=== PATIENT | female | born 1975 | race Caucasian/White ===

== ENCOUNTER → 2016-05-02 | Outpatient (CLI) | payer MEDICAID ==
[~2016-05-02] MED LIST: ACET325T51 PO; HYDR-3989 PO; NO ROUTINE MEDS; SULF1TAB42 PO
--- NOTE | 2016-05-02 10:31 | DI ---
Indication: ITS.REASON: Z01.419 WELL WOMAN EXAM; N85.2 Hypertrophy of uterus PROCEDURE: US PELVIC NON OB W/TRANS VAG: Encounter: Initial Comparison: None FINDINGS: Transvaginal and transabdominal pelvic imaging was performed. The uterus measures 8.1 x 3.1 x 6.7 cm. The parenchyma is homogeneous without fibroids. The endometrial stripe measures 8 mm in thickness. There is no evidence of focal endometrial mass. Both ovaries are identified and normal in appearance. Small possible hemorrhagic cyst in the left ovary measuring 1.5 cm in size. Benign appearing simple cyst in the right ovary measuring 1.3 cm in size. The right ovary measures 2.4 x 1.6 x 1.9 cm. The left ovary measures 3.2 x 2.1 x 2.6 cm. There are no abnormal adnexal masses detected. IMPRESSION: Unremarkable pelvic sonogram. .
== END ==
LOC: IMA 09:31
PROVIDERS: ATTEND Family Medicine
DX: Z12.31 Encounter for screening mammogram for malignant neoplasm of breast (principal); Z01.419 Encounter for gynecological examination (general) (routine) without abnormal findings; N85.2 Hypertrophy of uterus

== ENCOUNTER 2016-05-24 10:22 | Day surgery (SDC) | payer MEDICAID ==
[~2016-05-24] VITALS: Ht 175.3 cm; Wt 114.3 kg
[2016-05-24] VITALS (15 sets, daily range): BP systolic 108–138; BP diastolic 58–110; PULSE 59–81; RESP 14–20; TEMP 97.1–98; O2SAT 96–100; Ht 175.3 cm; Wt 114.3 kg
[~2016-05-24 10:22] MED LIST changes: +BUPR150T8 PO; +HYDR-3841 PO; -HYDR-3989 PO; +LIDOCAINE 1% (10mg/ml) 2ml SDV INJ ONE; +LR 1,000 ML IV SCH; +LURA80TA PO; -NO ROUTINE MEDS; -SULF1TAB42 PO
--- NOTE | 2016-05-24 10:50 | ANESPREOP ---
Anesthesia Record Date and Time DATE: 05/24/16 TIME: 10:47 Proposed Surgical Procedure COLPOSCOPY Allergies: Coded Allergies: Penicillins (Verified Allergy, Unknown, 05/24/16) Ht/Wt/BMI Height: 5 ' 9.00 " Weight: 114.300 kg BMI: 37.2 kg/m2 Vital Signs Date Time Temp Pulse Resp B/P Pulse Ox O2 Delivery O2 Flow Rate FiO2 05/24/16 10:39 98.0 64 14 135/62 98 Room Air Medications Inpatient Medications Current Medications Medications (Trade) Dose Ordered Sig/Billy Start Time Stop Time Status Last Admin Dose Admin Lactated Ringer's (Lactated Ringers) 1,000 ml @ 50 mls/hr Q20H 05/24/16 07:00 Acetaminophen (Acetaminophen) 325 Mg Tablet, 2 TAB PO Q6H PRN for PAIN, ( Reported) Bupropion HCl (Bupropion HCl Sr) 150 Mg Tablet.er, 1 TAB PO BID, (Reported) Hydroxyzine Pamoate (Hydroxyzine Pamoate) 25 Mg Capsule, 1 TAB PO TID, (Reported ) Lurasidone HCl (Latuda) 80 Mg Tablet, 1 TAB PO HS, (Reported) Currently on Beta [place]: No Medical/Surgical History Anesthesia PMH: Denies: *Diabetes, Anesthesia Reactions (NO AIRWAY ISSUES), Arthritis, Cancer, Clotting Problems, Glaucoma, Malignant Hyperthermia, Renal Disease, Thyroid Disease Smoking Status: Current every day smoker Has pt. smoked today?: No # of Packs per Day: 1 Use Chewing Tobacco?: No Substance Use Type: does not use Last Drink: hours (ago) (8) HX of Last Menstrual Period: APRIL 2016 Past Surgical History Orthopedic Surgeries: Abdominal Surgeries: Yes - APPENDIX Genitourinary Surgeries: Cardiac Surgeries: Endocrine Surgeries: Reproductive Surgeries: Yes - C-SECTIONS X3,TUBAL Neurological Surgeries: Ear Surgeries: Nose Surgeries: Throat Surgeries: Yes - TONSILS Other Surgeries: Anesthesia Adverse Reactions: FOUND none Family Hx of Anesthesia Advers: none Hx of Motion Sickness: No Physical Exam Respiratory: Lungs clear Cardiovascular: FOUND Regular rate, rhythm Airway Assessment Mallampati Score: II TMD: 3 Fingerbreadths Neck Extension: Good Teeth: Upper Dentures Overall Assessment: No Airway Concerns ASA: 2 Plan Anesthesia Plan: TIVA Discussion Discussed risks/options/alternatives of anesthesia and questions answered. Patient consents. Nursing pain assessment noted. Attestation Statement Prior to the delivery of any anesthetic medication, I examined the patient, developed the plan, obtained the patient's consent and discussed the risk and benefits of the procedure with the patient/guardian. SUKHDEEP COOL CHILD AND ADOLESCENT PSYCHOLOGIST May 24, 2016 10:50
[2016-05-24] MEDS ORDERED: PROPOFOL 200mg 0 ML IV ONE (10:53)
[2016-05-24] MEDS ORDERED: PROPOFOL 500mg 0 ML IV ONE (10:53)
[2016-05-24] MEDS ORDERED: FENTANYL 100mcg/2ml INJECTION ONE ×2 (11:02→11:06)
[2016-05-24] MEDS ORDERED: PROPOFOL 500mg 50 ML IV ONE (11:05)
[2016-05-24] MEDS ORDERED: PROPOFOL 200mg 20 ML IV ONE (11:05)
[2016-05-24] MEDS ORDERED: KETAMINE 500mg/10ml INJECTION ONE (11:06)
--- NOTE | 2016-05-24 11:59 | NUR ---
ANXIOUSNESS PT EXTREMELY ANXIOUS ON ADMIT TO PACU. VERSED 1.0MG ADMINISTERED IV BY SUKHDEEP COOL CRNA
--- NOTE | 2016-05-24 12:04 | NUR ---
ANXIOUSNESS PT STATES SHE STILL FEELS LIKE SHE IS HAVING A PANIC ATTACK AND THAT THE [facility] ARE CLOSING IN. ADDITIONAL VERSED 0.5MG ADMINISTERED IV.
--- NOTE | 2016-05-24 12:23 | ANESPO ---
Post-Op Note Date 05/24/16 Time: 12:22 Status Pt Participated in Evaluation: Pt participated in person Vital Signs Date Time Temp Pulse Resp B/P Pulse Ox O2 Delivery O2 Flow Rate FiO2 05/24/16 10:39 98.0 64 14 135/62 98 Room Air Respiratory Function: Airway patent, Regular respirations Cardiovascular Function: Regular pulse Mental Status: Alert/oriented Pain Level Intensity: 0 Hydration: Taking po fluids Complications during Recovery None apparent Follow-Up Instructions Instructions Per Surgeon PATRICIA MONK May 24, 2016 12:23
[2016-05-24] MEDS ORDERED: IBUPROFEN 600 MG TABLET PO PRN ×2 (12:45→13:00)
--- NOTE | 2016-05-24 12:49 | NUR ---
HEADACHE PT REPORTS HEADACHE, RATING HER DISCOMFORT 6/10. MOTRIN 600MG ADMINISTERED PO FOR PAIN.
[2016-05-24] MEDS ORDERED: SILVER NITRATE APPLICATOR TOP ONE (13:52)
--- NOTE | 2016-05-25 23:04 | OPNOTEF ---
DATE OF SURGERY: 05/24/2016 PREOPERATIVE DIAGNOSIS: 41-year-old white female with a low grade JESSENIA Pap smear, unable to tolerate colonoscopy in the office. POSTOPERATIVE DIAGNOSIS: Same. PROCEDURES: Colposcopy of the cervix under anesthesia. EBL: Minimal SURGEON: Subhash Villalobos MD COMPLICATIONS: None. ANESTHESIA: TIVA - converted to general by gas. This is a patient referred to me for an abnormal Pap smear for a colposcopy. I attempted it in the office last Sunday and was unable to visualize the cervix and it was getting very uncomfortable for the patient, so we set this up for some IV anesthesia. DESCRIPTION After adequate anesthesia, the patient was set up and draped in the low lithotomy position. I tried a couple of different speculums until I found one that I could easily visualize the cervix. Then I brought the colposcopy machine from my office over and was able to visualize the cervix and the entire transformation zone. I performed the colposcopy. I did an ECC with the Cytobrush and then did a biopsy at the 6 o'clock position. Cervix looked pretty good with the clinical impression of normal to CIN1. Silver nitrate was used to achieve hemostasis and then the procedure was completed. The patient went to recovery room in stable condition. SHABBIR
== END 2016-05-24 13:23 | disposition home or self-care (01) ==
LOC: SCU 10:22
PROVIDERS: ATTEND Obstetrics & Gynecology
DX: D06.0 Carcinoma in situ of endocervix (principal); N72 Inflammatory disease of cervix uteri; F31.9 Bipolar disorder, unspecified; R01.1 Cardiac murmur, unspecified; F17.200 Nicotine dependence, unspecified, uncomplicated; Z79.899 Other long term (current) drug therapy
CPT/HCPCS: 57454; 81025; J2704; J3010; J7120

== ENCOUNTER 2016-06-23 07:13 | Day surgery (SDC) | payer MEDICAID ==
[2016-06-23] VITALS (24 sets, daily range): BP systolic 121–151; BP diastolic 66–102; PULSE 51–87; RESP 14–25; TEMP 96.5–98.9; O2SAT 94–100; Ht 175.3 cm; Wt 118.3 kg
[~2016-06-23] VITALS: Ht 175.3 cm; Wt 118.3 kg
[~2016-06-23 07:13] MED LIST changes: -ACET325T51 PO; +BUSP30TA2 PO; +CEFOXITIN IV ONE; -HYDR-3841 PO; +HYDR50CA5 PO; +LURA20TA PO; +NORMAL SALINE IV ONE; +PRAZ5CAP2 PO
--- OUTSIDE RECORDS SUMMARY | 2016-06-23 07:17 | XMS REPORT | Continuity of Care Document ---
Author Author [facility] Organization [facility] Address Unknown Phone Unavailable Care Team Providers Care Reclamation Supervisor Name Role Phone ZANE US MD Primary Care Physician [phone] Insurance Providers Guarantor Emily Quintanilla Address [address] [place] [address] Email [email or web address] Payer [facility] Policy Number [id number] Subscriber's Name Emily Quintanilla Relationship 18 Self Effective Date 16 Expiration Date 16 Advance Directives Directive Response Recorded Date/Time Dr Christie Resuscitation Status Full Code 05/23/16 2:59pm Resuscitation Documents on File No 05/24/16 10:49am DPOA for Healthcare Only No 05/24/16 10:49am Living Will No 05/24/16 10:49am Problems Active Problems Medical Problem Onset Date Status Acute sinusitis Unknown Acute Past Problems Medical Problem Onset Date Abscess or cellulitis of groin Unknown Medications Current Home Medications Medication Dose Units Route Directions Days Qty Instructions Start Date Acetaminophen 325 Mg Tablet 2 Tab Oral Every 6 Hours as needed for Pain 07/17/15 Bupropion Hcl (Bupropion Hcl Sr) 150 Mg Tablet.er 1 Tab Oral Twice A Day 60 05/23/16 Hydroxyzine Pamoate 25 Mg Capsule 1 Tab Oral Three Times A Day 90 05/23/16 Lurasidone Hcl (Latuda) 80 Mg Tablet 1 Tab Oral Bedtime 30 Social History Social History Problem Response Recorded Date/Time Onset Date Status Chewing Tobacco Status No 05/23/2016 10:42am Not Applicable Not Applicable Hx Substance Use No 05/23/2016 10:42am Not Applicable Not Applicable Hx Alcohol Use Yes 05/23/2016 10:42am Not Applicable Not Applicable Has the pt used tobacco in the last 12 months Yes 05/23/2016 10:42am Not Applicable Not Applicable Tobacco Usage smoke 05/16/2015 12:37pm Not Applicable Not Applicable Query Response Start Date Stop Date Smoking Status Current every day smoker Hospital Discharge Instructions No hospital discharge instructions. Plan of Care Discharge Date 05/24/16 1:23pm Prescriptions See Medication Section Functional Status Query Response Date Recorded Ability to complete ADL's impeded by No change May 24, 2016 10:49am Allergies, Adverse Reactions, Alerts Allergen Type Severity Reaction Status Last Updated Penicillin Allergy Unknown Active 05/24/16 Immunizations Query Response on File Recorded Date/Time Hx Influenza Vaccination No 05/23/16 10:42am Hx Pneumococcal Vaccination No 05/23/16 10:42am Hx Influenza Vaccination No 05/23/16 10:42am Influenza Vaccine Hx NO 07/17/15 9:30am Vital Signs Acute Vital Signs Vital Response Date/Time Temperature (Fahrenheit) 97.2 deg F (96.8 - 99.1) 05/24/2016 12:36pm Temperature (Calculated Celsius) 36.39513 degrees C (36.0 - 37.3) 05/24/2016 12:36pm Temperature Source Temporal 05/24/2016 12:36pm Pulse Rate (adult) 61 bpm (60 - 100) 05/24/2016 1:20pm Respiratory Rate 18 breaths/min (10 - 20) 05/24/2016 1:20pm O2 Sat by Pulse Oximetry 99 % (90 - 100) 05/24/2016 1:20pm Oxygen Delivery Method Room Air 05/24/2016 12:36pm Blood Pressure 125/78 mm Hg 05/24/2016 1:20pm Blood Pressure Source Automatic Cuff 05/24/2016 1:20pm Height (Feet) 5 feet 05/24/2016 10:38am Height (Inches) 9.00 inches 05/24/2016 10:38am Weight (Kilograms) 114.300 kg 05/24/2016 10:38am Body Mass Index (BMI) 37.2 05/24/2016 10:38am Results No known relevant diagnostic tests, laboratory data and/or discharge summary. Procedures Procedure Status Date Provider(s) Transvaginal us non-ob Completed 05/02/16 Us exam pelvic complete Completed 05/02/16 Breast tomosynthesis bi Completed 05/02/16 Scr mammo bi incl cad Completed 05/02/16 Colposcopy Completed 05/24/16 NEL VANEGAS MD Encounters Encounter Location Arrival/Admit Date Discharge/Depart Date Attending Provider Departed [facility] 05/24/16 10:22am 05/24/16 1 :23pm NEL VANEGAS MD Registered Clinic [facility] 05/02/16 9:31am BRITTANY TARANGO
[2016-06-23] MEDS ORDERED: BUPIVACAINE 0.25% (2.5mg/ml) INJ 30ml SDV ONE (07:28)
[2016-06-23 07:53] LABS: BASOPHILS # (AUTO) 0.1 T/MM3 (0-0.2); BASOPHILS % (AUTO) 0.7 % (0-2); EOSINOPHILS # (AUTO) 0.4 T/MM3 (0-0.5); EOSINOPHILS % (AUTO) 5.2 % (0-4); HGB - HEMOGLOBIN 13.2 GM/DL (12-16); IMMATURE GRANULOCYTE # (AUTO) 0.02 T/MM3 (0.00-0.03); IMMATURE GRANULOCYTE % (AUTO) 0.3 % (0.0-0.5); LYMPHOCYTES % (AUTO) 29.5 % (23-45); MEAN CORPUSCULAR HGB 30.3 UUG (26-34); MEAN CORPUSCULAR HGB CONC(MCHC 33.8 GM/DL (31-37); MEAN CORPUSCULAR VOLUME 89.4 UM3 (80-100); MEAN PLATELET VOLUME 10.1 UM3 (9.4-12.4); MONOCYTES # (AUTO) 0.8 T/MM3 (0-0.8); NEUTROPHILS #(AUTO)-ABSOLUTE 3.5 T/MM3 (1.8-7.7); NEUTROPHILS % (AUTO) 52.3 % (33-66); RED BLOOD COUNT 4.36 M/MM3 (4.00-5.20); WBC - WHITE BLOOD COUNT 6.7 T/MM3 (4.5-11.0)
[2016-06-23 08:00] LABS: ALBUMIN 4.1 G/DL (3.5-5.0); ALBUMIN/GLOBULIN RATIO 1.6 RATIO (1.1-2.2); ALKALINE PHOSPHATASE 60 U/L (38-126); ALT (SGPT) 54 U/L (9-52); ANION GAP 11 MEQ/L (5-15); AST (SGOT) 28 U/L (14-36); BUN/CREATININE RATIO 13 RATIO (6-26); CHLORIDE 106 MEQ/L (98-107); CO2 - CARBON DIOXIDE 28 MEQ/L (22-30); CREATININE 0.8 MG/DL (0.7-1.2); GLOMERULAR FILTRATION RATE 79; GLUCOSE 94 MG/DL (65-110); SODIUM 145 MEQ/L (134-144); TOTAL PROTEIN 6.6 G/DL (6.3-8.2)
[2016-06-23] MEDS ORDERED: CEFAZOLIN 1 GRAM INJECTION IV ONE (08:00)
[2016-06-23] MEDS ORDERED: ALBUTEROL INH.SOLN. 2.5mg/3ml (0.083%) Neb. AEROSOL ONE (08:30)
--- NOTE | 2016-06-23 08:33 | ANESPREOP ---
Anesthesia Record Date and Time DATE: 06/23/16 TIME: 08:20 Proposed Surgical Procedure ROBOTIC LAP HYSTERECTOMY/POSS SALPINGECTOMY Allergies: Coded Allergies: Penicillins (Verified Adverse Reaction, Unknown, YEAST INFECTIONS, 06/22/16 ) Ht/Wt/BMI Height: 5 ' 9.00 " Weight: 116.900 kg BMI: 38.1 kg/m2 Vital Signs Date Time Temp Pulse Resp B/P Pulse Ox O2 Delivery O2 Flow Rate FiO2 06/23/16 07:26 97.6 67 19 122/78 98 Room Air Medications Inpatient Medications Current Medications Medications (Trade) Dose Ordered Sig/Billy Start Time Stop Time Status Last Admin Dose Admin Lactated Ringer's (Lactated Ringers) 1,000 ml @ 100 mls/hr Q10H 06/23/16 07:00 Bupropion HCl (Bupropion HCl Sr) 150 Mg Tablet.er, 2 TAB PO DAILY, (Reported) Last Taken: on 06/22/162199 Buspirone HCl (Buspirone HCl) 30 Mg Tablet, 1 TAB PO BID, (Reported) Last Taken: on 06/22/162199 Hydroxyzine Pamoate (Hydroxyzine Pamoate) 50 Mg Capsule, 1 CAP PO TID, (Reported) Last Taken: on 06/22/162199 Lurasidone HCl (Latuda) 80 Mg Tablet, 1 TAB PO DAILY, (Reported) Last Taken: on 06/22/162199 Lurasidone HCl (Latuda) 20 Mg Tablet, 1 CAP PO HS, (Reported) Last Taken: on 06/22/162199 Prazosin HCl (Prazosin HCl) 5 Mg Capsule, 1 CAP PO HS, (Reported) Last Taken: on 06/22/162199 Discontinued Medications Hydroxyzine Pamoate (Hydroxyzine Pamoate) 25 Mg Capsule, 1 TAB PO TID, (Reported ) Currently on Beta [place]: No Medical/Surgical History Anesthesia PMH: Denies: *Diabetes, Anesthesia Reactions (NO AIRWAY ISSUES), Arthritis, Cancer, Clotting Problems, Glaucoma, Malignant Hyperthermia, Reflux, Renal Disease, Sleep Apnea, Thyroid Disease Smoking Status: Current every day smoker Has pt. smoked today?: No # of Packs per Day: 1 Use Chewing Tobacco?: No Substance Use Type: does not use Last Drink: hours (ago) HX of Last Menstrual Period: 05/24/16 Past Surgical History Orthopedic Surgeries: Abdominal Surgeries: Yes - APPY Genitourinary Surgeries: Cardiac Surgeries: Endocrine Surgeries: Reproductive Surgeries: Yes - C-SECTIONS X3,TUBAL Neurological Surgeries: Ear Surgeries: Nose Surgeries: Throat Surgeries: Yes - TONSILS Other Surgeries: Yes - C-SECTIONS X3,TUBAL Anesthesia Adverse Reactions: FOUND none Pertinent Findings Laboratory Tests 06/23/16 07:41 Test 06/23/16 07:41 Human Chorionic Gonadotropin, Qual Negative (NEGATIVE) Physical Exam Respiratory: Wheezing (breathing tx ordered) Cardiovascular: FOUND Regular rate, rhythm Airway Assessment Mallampati Score: II TMD: 3 Fingerbreadths Neck Extension: Good Teeth: Upper Dentures ASA: 2 Plan Anesthesia Plan: GETA Discussion Discussed risks/options/alternatives of anesthesia and questions answered. Patient consents. Nursing pain assessment noted. Attestation Statement Prior to the delivery of any anesthetic medication, I examined the patient, developed the plan, obtained the patient's consent and discussed the risk and benefits of the procedure with the patient/guardian. SUKHDEEP COOL CRNA June 23, 2016 08:33
[2016-06-23] MEDS ORDERED: LIDOCAINE 2% (20mg/ml) 5ml PF SDV ONE (08:42)
[2016-06-23] MEDS ORDERED: ONDANSETRON 4mg/2ml INJECTION ONE (08:42)
[2016-06-23] MEDS ORDERED: PROPOFOL 500mg 50 ML IV ONE (08:42)
[2016-06-23] MEDS ORDERED: FENTANYL 100mcg/2ml INJECTION ONE (08:42)
[2016-06-23] MEDS ORDERED: DiphenhydrAMINE 50 MG/ML INJECTION ONE (08:42)
[2016-06-23] MEDS ORDERED: DEXAMETHASONE 4mg/ml - 1ml INJECTION ONE (08:42)
[2016-06-23] MEDS ORDERED: ROCURONIUM 50mg/5ml INJECTION IV ONE ×2 (08:42→11:35)
[2016-06-23] MEDS ORDERED: MIDAZOLAM 2mg/2ml INJECTION ONE (08:43)
[2016-06-23] MEDS ORDERED: HYDROMORPHONE 2mg/ml INJECTION ONE (10:33)
[2016-06-23] MEDS ORDERED: GLYCOPYRROLATE 0.4mg/2ml INJECTION ONE (12:53)
--- NOTE | 2016-06-23 13:14 | GYNOPNOTE1 ---
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
[2016-06-23] MEDS ORDERED: DimenhyDRINATE 50 MG in LR 1,000 ML IV SCH (13:40)
[2016-06-23] MEDS ORDERED: ONDANSETRON 4mg/2ml INJECTION IV PRN (13:45)
--- NOTE | 2016-06-23 14:15 | NUR ---
ADMISSION PT ADMITTED TO ROOM 109 VIA CART FROM PACU POST HYSTERECTOMY. PT REPORTS PAIN OF 10/10, PRN MORPHINE GIVEN. PT IS A&OX3, UP WITH TWO ASSIST UNTIL SHE WAKES A LITTLE MORE. PT REPORTS SHE FEELS LIKE SHE NEEDS TO DEFECATE BUT IS UNABLE. PT UP TO COMMODE BUT NO RESULTS. EXPLAINED TO PT THAT THE FEELING OF PRESSURE COULD BE FROM THE SURGERY. PT RESTING IN BED AT THIS TIME. VITALS WNL. ALARMS IN USE AND CALL LIGHT WITH IN REACH.
--- NOTE | 2016-06-23 14:16 | ANESPO ---
Post-Op Note Date 06/23/16 Time: 14:12 Status Pt Participated in Evaluation: Pt participated in person Vital Signs Date Time Temp Pulse Resp B/P Pulse Ox O2 Delivery O2 Flow Rate FiO2 06/23/16 14:10 97.1 53 22 151/82 98 Nasal Cannula 2.00 Respiratory Function: Airway patent, Regular respirations Cardiovascular Function: Regular pulse Mental Status: Alert/oriented Pain Level Intensity: 0 Hydration: IV infusing Complications during Recovery None apparent Follow-Up Instructions Instructions Per Surgeon MATT JEAN CRNA June 23, 2016 14:16
[2016-06-23] MEDS: MORPHINE SULFATE 4 MG SYRINGE IV PRN ×2 (14:29→16:47)
[2016-06-23] MEDS ORDERED: NORMAL SALINE IV ONE (15:00)
[2016-06-23] MEDS ORDERED: CEFOXITIN IV ONE (15:00)
[2016-06-23] MEDS: HydrOXYzine 50 MG TABLET PO SCH ×2 (16:24→21:32)
[2016-06-23] MEDS: HYDROCODONE/APAP 5 mg/325 mg TABLET PO PRN ×2 (16:25→23:10)
--- NOTE | 2016-06-23 16:53 | NUR ---
PAIN PT C/O PAIN LOCATED IN HER ABDOMEN AND RECTUM. PT RATES THIS PAIN THE WORST SHE HAS EVER EXPERIENCED (/) SAYING "IT FEELS LIKE THERE IS A METAL PIPE UP MY ASS", "THIS REALLY FUCKING HURTS". STAFF INFORMS THE PATIENT AND VISITOR IN THE ROOM THAT THE PATIENT NEEDS TO FOCUS ON DEEP BREATHING, AND BREATHING IN THROUGH THE NOSE AND OUT THROUGH THE MOUTH. THE PATIENT THEN PREFORMED THE BREATHING EXERCISE. THIS NURSE ALSO ADMINISTERED 4MG OF IV MORPHINE FOR THE PATIENT'S PAIN. STAFF TO REASSESS PAIN. PT RESTING IN BED, LIGHTS DIMMED FOR COMFORT.
[2016-06-23 17:18] LABS: HCT - HEMATOCRIT 39.9 % (36-46); HGB - HEMOGLOBIN 13.3 GM/DL (12-16); MEAN CORPUSCULAR HGB 30.1 UUG (26-34); MEAN CORPUSCULAR HGB CONC(MCHC 33.3 GM/DL (31-37); MEAN CORPUSCULAR VOLUME 90.3 UM3 (80-100); MEAN PLATELET VOLUME 10.2 UM3 (9.4-12.4); RED BLOOD COUNT 4.42 M/MM3 (4.00-5.20); WBC - WHITE BLOOD COUNT 13.7 T/MM3 (4.5-11.0)
--- NOTE | 2016-06-23 17:41 | GSPOSTPN ---
Postoperative Progress Note 06/23/16 vss af hgb stable disc surgery q&a-krb NEL VANEGAS MD June 23, 2016 17:41
[2016-06-23] MEDS: SIMETHICONE 80 MG CHEWABLE TABLET PO SCH ×2 (18:56→21:32)
[2016-06-23] MEDS: IBUPROFEN 800 MG TABLET PO PRN (18:56)
[2016-06-23] MEDS ORDERED: IODINE PO ONE (22:00)
[2016-06-23] MEDS ORDERED: NEOMYCIN/POLYM/BACITR OINT PACKET TOP ONE (22:00)
[2016-06-23] MEDS ORDERED: LURASIDONE 40 MG TABLET PO SCH (22:00)
[2016-06-23] MEDS ORDERED: POTASSIUM IODIDE PO ONE (22:00)
[2016-06-23] MEDS ORDERED: FERRIC SUBSULFATE 8 GM TOP ONE (22:00)
[2016-06-23] MEDS: D5LR 1,000 ML IV SCH (23:08)
[2016-06-24 03:17] VITALS: BP 156/87; PULSE 77; RESP 16; TEMP 99; O2SAT 95
--- NOTE | 2016-06-24 05:15 | NUR ---
SHIFT SUMMARY PT IS ALERT AND ORIENTED X3,VITAL SIGNS ARE STABLE ON ROOM AIR. DENIES C/P,N/V AND SOA. PT HAS NEEDED PRN PO PAIN MEDICATION WHICH HAS CONTROLLED THE PAIN WELL. PT HAS DANGLED ON THE SIDE OF THE BED AND WALKED IN HER ROOM ON THIS SHIFT. PT HAS HAD ADEQUATE OUTPUT VIA HADLEY. HADLEY TO BE DC'D AT 0700. WILL CONTINUE TO MONITOR OUTPUT. PT HAS SLEPT THROUGHOUT THE NIGHT BETWEEN CARES.
--- NOTE | 2016-06-24 07:00 | NUR ---
HADLEY HADLEY REMOVED PER DRS ORDERS, AAKASH-CARE PROVIDED AT THIS TIME. WILL MONITOR URINE OUTPUT POST HADLEY.
[2016-06-24] MEDS: IBUPROFEN 800 MG TABLET PO PRN (08:08)
[2016-06-24] MEDS: D5LR 1,000 ML IV SCH (08:08)
[2016-06-24 08:11] VITALS: BP 126/74; PULSE 72; RESP 16; TEMP 97.9; O2SAT 98
[2016-06-24 08:30] VITALS: PULSE 77; RESP 16
[2016-06-24] MEDS ORDERED: DOCUSATE CALCIUM 240 MG CAPSULE PO SCH (09:00)
[2016-06-24] MEDS: HYDROCODONE/APAP 5 mg/325 mg TABLET PO PRN (09:00)
[2016-06-24] MEDS ORDERED: LURASIDONE 40 MG TABLET PO SCH (09:00)
[2016-06-24] MEDS: HydrOXYzine 50 MG TABLET PO SCH (09:18)
[2016-06-24] MEDS: SIMETHICONE 80 MG CHEWABLE TABLET PO SCH (09:18)
--- NOTE | 2016-06-24 10:36 | NUR ---
TIFFANIE ALEXANDER IS 1. Addendum: 06/24/16 at 1036 by ZHANE NIÑO SW Amended: Links added.
--- NOTE | 2016-06-24 10:37 | NUR ---
CM THIS WORKER SPOKE WITH PT, INTRODUCED SELF, EXPLAINED ROLE, PROVIDED CONTACT INFO. PT STATED [place] WITH HER ROOMMATE, HER BOYFRIEND, AND HER 2 SPECIAL NEEDS CHILDREN (WHOM HER BOYFRIEND IS WATCHING WHILE SHE IS HERE). SHE SAID HER DC PLAN IS TO RETURN BACK HOME, AND HER BOYFRIEND OR ROOMMATE WILL PICK HER UP. SHE SAID SHE DOES NOT HAVE--OR NEED--ANY DME OR HOME HEALTH. SHE HAD NO QUESTIONS/NEEDS FOR THIS WORKER. ENCOURAGED HER TO CALL IF QUESTIONS DO ARISE, AND SHE SAID OK. Addendum: 06/24/16 at 1039 by ZHANE ANGEL Amended: Links added. Addendum: 06/24/16 at 1114 by ZHANE ANGEL SPOKE AGAIN WITH PT LATER, WHEN SHE WAS FEELING BETTER. PT STATED SHE STILL DOES NOT HAVE ANY QUESTIONS/NEEDS FOR THIS WORKER. HER DC PLAN IS TO RETURN HOME. THIS WORKER INQUIRED ABOUT SERVICES SHE MAY NEED; SHE SAID SHE HERSELF DOES NOT HAVE ANY BUT THAT HER 2 CHILDREN BOTH HAVE SERVICES IN PLACE (IN HOME HELP). SHE SAID SHE DOES NOT NEED ANY FURTHER ASSISTANCE.
[2016-06-24] MEDS ORDERED: HYDR-4246 PO (10:44)
[2016-06-24] MEDS ORDERED: IBUP-1547 PO (10:44)
--- NOTE | 2016-06-24 11:47 | NUR ---
DISCHARGE PATIENT IS ALERT AND ORIENTED X3. PATIENT VITALS ARE STABLE AND PATIENT IS ON ROOM AIR. PATIENT DENIES CP, NAUSEA, AND SOA. DISCHARGE INSTRUCTIONS INCLUDE: NEW MEDICATIONS, CONTINUED MEDICATIONS, SIGNS AND SYMPTOMS OF INFECTION, INCISION CARE, ACTIVITY/BATHING, REASONS TO CALL DOCTOR AND/OR SEEK IMMEDIATE CARE, AND DI FOR LAPAROSCOPIC HYSTERECTOMY. PERSONAL BELONGINGS RETURNED, AND ID BANDS REMOVED. IV DISCONTINUED. SCRIPT FOR NORCO GIVEN TO PATIENT. PATIENT LEFT VIA WHEELCHAIR FROM ER ENTRANCE. PATIENT TRANSPORTED HOME FOR SELF CARE BY BOYFRIEND.
--- NOTE | 2016-06-24 12:32 | OPNOTEF ---
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 POSTOPERATIVE DIAGNOSIS: Same. PROCEDURE: Cold knife conization of the cervix followed by robotic-assisted vaginal hysterectomy and bilateral salpingectomy. EBL: 100 mL. ANESTHESIA: General endotracheal Charles Rivera CRNA SURGEON: Subhash Villalobos MD COMPLICATIONS: None. DESCRIPTION OF PROCEDURE After adequate general anesthesia and intubation, the patient was positioned, prepped and draped. We began the procedure by performing a cold knife cone of the cervix. Cervix was visualized and 0-chromic sutures were placed at the 3 and 9 o'clock position in a figure-of- eight fashion. Cervix sounded to 10 cm. Lugol solution was painted on the cervix to identify the squamocolumnar junction and it was very close to the os. Then, using an 11-blade, I performed a cold knife cone and sent the specimen for frozen section. 25 minutes later it returned as no invasion so we proceeded with the hysterectomy. We then re-prepped and draped in the usual robotic fashion. A heavy weighted speculum was placed posteriorly in the vaginal tract and then a Oneill catheter was inserted to drain the bladder. A Andree retractor was used anteriorly to visualize the cervix which was grasped at the 12 o'clock position with a single-tooth tenaculum. The uterus sounded to 10cm. It was anteverted. Then an Arch uterine manipulator was inserted through the cervix and the balloon was inflated. The cup was then brought down over the cervix. Then the Andree and the posterior heavy weighted speculum were removed and the uterus was able to be palpated abdominally. I then changed gloves and approached the abdomen. An area was anesthetized with 0.25% Marcaine several centimeters superior to the umbilicus in the midline and then a #11 blade was used to make a 12 mm incision and then the abdomen was tented and a Veress needle was inserted. Saline drop test confirmed intraabdominal placement and then the abdomen was insufflated. Veress needle was then removed and then a 12 mm bladeless trocar was inserted. Once it was inside the abdomen, the sheath was left in place and the trocar was removed and the camera was inserted confirming intraabdominal placement and no obvious organ injury. Then the interior cuff on the 12 mm trocar was inflated. I then placed the 8 mm robotic trocars bilaterally approximately 10 cm lateral to the umbilicus. I anesthetized with Marcaine and made an incision with an 11-blade and then placed the ports under direct vision. This was repeated in the left upper quadrant for the family law legal assistant port as well. Once all the ports were in place and advanced to the appropriate markings, then the bed was lowered and the patient was placed in 30 degrees Trendelenburg. We then backed it off to 22 degrees Trendelenburg and I still had an adequate view so the robot was brought forward and docked and I placed the bipolar fenestrated in the left arm and the monopolar scissors in the right arm. Then I removed my gown and approached the robotic console to begin the hysterectomy. The bladder was already drained. The uterus was elevated and I started by identifying the ureters bilaterally. Since the ovaries looked normal bilaterally, I decided to leave them in place which was the preoperative plan approved by the patient. Then I cauterized the round ligaments bilaterally and transected them and then opened up the broad ligament. Then I dissected the bladder off the lower uterine segment by creating a plane, then careful dissection. I filled the bladder with fluid to discern the edges and I dissected until the edge of the bladder was well below the manipulator cuff. Then I further dissected open the broad ligaments. I removed the tubes bilaterally with cautery and sharp dissection. Fallopian tubes were removed bilaterally by cauterizing their attachments and transecting them and dissecting them out. Once I had free the tubes bilaterally, then I went through the ovarian suspensory ligaments bilaterally thus leaving the ovaries. I then began skeletonizing the sides until I could identify the uterine vessels bilaterally. I could clearly see the posterior portion of the cuff cup and the anterior portion as I dissected off the bladder from the anterior portion of the uterus. I next cauterized the uterine vessels bilaterally, first by sealing them close to the uterus and then cauterizing down to the level of the cuff cup. Once the blood supply had been adequately cauterized, it was transected with monopolar scissors. I dissected both sides free until I was clear all the way around the cuff. Once it was clear all the way around, then I began dissecting through the vaginal cuff to the cup. I did this with monopolar scissors, starting anteriorly and first going to the right and then left until the uterus and tubes were completely free. They then were delivered vaginally and sent to pathology. Dr. Hua came in briefly to help deliver the uterus vaginally when the uterine manipulator pulled out of the uterus. We then copiously irrigated the pouch of Shailesh and the vaginal cuff and a slight amount of cautery was used to gain some hemostasis on the vaginal cuff. Then the cuff closure was begun. Vaginal cuff was closed using 180-day 2-0 V-Loc suture starting from the right edge, incorporating the uterosacral ligament in a corner-type stitch across all the way to the left. Then another 180-day 2-0 V-Loc suture was used starting from the left edge, incorporating the uterosacral ligament in a corner-type stitch across all the way to the right. This essentially made a double-layer closure in the middle of the vaginal cuff. I used large bites in the vaginal cuff because I was able to dissect the bladder down so well. Then additional irrigation was used to cleanse the area. Cuff was hemostatic and cleansed and the ureters were identified bilaterally and peristalsing again. I filled the bladder with fluid and no bladder injury or leakage was noted. This now being complete and the pelvis being reexamined bilaterally and found to be hemostatic, I was then ready to scrub back in and undock the robot. I reconfirmed hemostasis prior to removing the instruments. Then I removed each of the 8 mm ports under direct vision and they were hemostatic. Then I removed the 12 mm port and began closure. The fascia was closed in a figure-of- eight fashion with 2-0 Vicryl on the 12 mm port. 3-0 Vicryl in a simple interrupted fashion was used to close the skin incisions. Additional Marcaine was placed. Then I went vaginally and examined the vaginal cuff and it was hemostatic. Urine was clear and free flowing. I brought the patient out of Trendelenburg and flattened her. At this point the surgery was complete and the patient awoke and went to Recovery in stable condition. Uterus and tubes were sent to surgical pathology. SHABBIR
== END 2016-06-24 11:47 | disposition home or self-care (01) ==
LOC: SCU 07:13 → SRG 07:17 → SCU 06-24 11:47
PROVIDERS: ATTEND Obstetrics & Gynecology
DX: D06.0 Carcinoma in situ of endocervix (principal); N80.0 Endometriosis of uterus; F31.9 Bipolar disorder, unspecified; R01.1 Cardiac murmur, unspecified; Z98.51 Tubal ligation status; F17.200 Nicotine dependence, unspecified, uncomplicated; Z79.899 Other long term (current) drug therapy
CPT/HCPCS: 36415; 57520; 58571; 80053; 84703; 85025; 85027; 86850; 86900; 86901; 94640; J0330; J0694; J1100; J1170; J1200; J1240; J2250; J2405; J3010; J7030; J7050; J7120; J7121; J7611; S0020; S2900